=== PATIENT | female | born 2000 | race Hispanic/Latino ===

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

== ENCOUNTER 2025-06-22 09:19 | Emergency (ER) | payer SELFPAY ==
[~2025-06-22] VITALS: Ht 162.6 cm; Wt 79.4 kg
[2025-06-22 09:25] VITALS: TEMP 99
--- NOTE | 2025-06-22 09:45 | ERN ---
General Chief Complaint: Abdominal Pain Stated Complaint: ABD PAIN Time Seen by MD: 09:39 History of Present Illness Initial Comments 25 year old female presented with a chief complaint of diarrhea associated with nausea and vomiting since yesterday evening. She said her diarrhea was watery without blood mixed with episodes every 30 minutes. She complained of abdominal discomfort in her right lower quadrant. She also complained of headache she attribute to her undiagnosed migraine. The headache was bilateral and associ ated with increased discomfort with light and sound. She did not complain of chest pain, shortness of breath, burning urine. Allergies: Coded Allergies: No Known Drug Allergies (Unverified Allergy, Unknown, 06/22/25) Past Medical History Past Medical History: No Pertinent History Past Surgical History: Tonsillectomy Surgical History Other: LEFT OVARY REMOVAL, Female( History) LMP: May 23, 2025 ROS Dictation CONSTITUTIONAL: No chills, no fever, no weakness, no diaphoresis, no malaise. HEAD/FACE: No signs of trauma. EENT: No eye pain, no blurred vision, no tearing, no double vision, no ear pain, no ear discharge, no nose pain, no nasal congestion, no throat pain, no throat swelling, no mouth pain. RESPIRATORY: No cough, no orthopnea, SOB, no stridor, wheezing. CARDIOVASCULAR: No chest pain, no edema, no palpitations, no syncope. GASTROINTESTINAL/ABDOMINAL: Right lower quadrant abdominal pain. Diarrhea and vomiting present. GENITOURINARY: No abnormal discharge, no dysuria, no frequent urination, no hematuria. No complaints of pain in the genitals. MUSCULOSKELETAL: No back pain, no gout, no joint pain, no joint swelling, no muscle pain, no muscle stiffness, no neck pain. INTEGUMENTARY: No change in color, no change in hair/nails, no dryness, no lesion, no lumps, no rash. NEUROLOGICAL/PSYCH: Headache present. HEMATOLOGIC/LYMPHATIC: Not anemic, no history of blood clots, no apparent bleeding, no bruising, glands not swollen. All Systems Negative, Except as Noted. Physical Exam Physical Exam Dictation GENERAL APPEARANCE: Alert, oriented x3, no acute distress, obese. HEAD AND FACE: Non-traumatic. EYES: PERRL, pink conjunctivas, eyelid no trauma, anterior chamber clear. EARS: Pinnas intact and no signs of trauma or erythema. NOSE: No discharge, no bleeding. OROPHARYNX: Mouth normal, teeth no caries, tongue pink. Pharynx clear, no erythema. Tonsils no exudates, no abscesses noted. Mucous membrane dry. NECK: Supple, non-tender, no thyromegaly, no masses, no JVD, no bruits. BREAST: Deferred. CHEST: No tenderness, no crepitus, no paradoxical movement, no retractions. LUNGS: Clear, well-ventilated, symmetric, no rales, wheezing, no rhonchi, no stridor, good breath sounds bilaterally. HEART: Regular rate, regular rhythm, no murmur, no gallops. VASCULAR: No peripheral edema. ABDOMEN: Tenderness in the right lower quadrant without rigidity, rebound tenderness and guarding. RECTAL: Deferred. GENITAL: Deferred. NEUROLOGICAL: Normal speech, gross motor function intact, gross sensory function intact. MUSCULOSKELETAL: Neck nontender, full range of motion, back nontender, full range of motion. EXTREMITIES: Nontender, full range of motion. SKIN: Color pink, dry, no turgor, no rash, no lacerations, no abrasions, no contusions. LYMPHATICS: Deferred. Results Laboratory and Microbiology Lab and Micro Result Laboratory Tests Test 06/22/25 09:42 06/22/25 11:14 White Blood Count 8.1 K/uL (4.8-10.8) Red Blood Count 4.65 MIL/uL (4.00-5.50) Hemoglobin 14.2 g/dL (12.0-16.0) Hematocrit 40.6 % (36-48) Mean Corpuscular Volume 87.3 fL (79-99) Mean Corpuscular Hemoglobin 30.5 pg (27.0-33.0) Mean Corpuscular Hemoglobin Concent 35.0 g/dL (32.0-36.0) Red Cell Distribution Width 12.0 % (11.0-15.5) Platelet Count 187 K/uL (130-400) Mean Platelet Volume 10.2 fL (7.5-10.5) Immature Granulocyte % (Auto) 0.2 % (0-1) Neutrophils (%) (Auto) 87.4 % (40.0-77.0) H Lymphocytes (%) (Auto) 7.0 % (21.0-51.0) L Monocytes (%) (Auto) 5.3 % (3.0-13.0) Eosinophils (%) (Auto) 0.0 % (0.0-8.0) Basophils (%) (Auto) 0.1 % (0.0-5.0) Neutrophils # (Auto) 7.1 K/uL (1.8-7.7) Lymphocytes # (Auto) 0.6 K/uL (1.0-4.8) L Monocytes # (Auto) 0.4 K/uL (0.1-1.0) Eosinophils # (Auto) 0.00 K/uL (0.00-0.70) Basophils # (Auto) 0.01 K/uL (0.00-0.20) Absolute Immature Granulocyte (auto 0.02 K/uL (0-1) Nucleated Red Blood Cells 0.0 % (0.0-0.19) White Cell Morphology Comment See comments Sodium Level 136 mmol/L (136-145) Potassium Level 3.8 mmol/L (3.5-5.1) Chloride Level 103 mmol/L (101-111) Carbon Dioxide Level 26 mmol/L (21-32) Blood Urea Nitrogen 12 mg/dL (7-18) Creatinine 0.7 mg/dL (0.5-1.0) Glomerular Filtration Rate Calc 125 mL/min (>90) Random Glucose 106 mg/dL (70-105) H Total Calcium 8.4 mg/dL (8.5-10.1) L Total Bilirubin 0.7 mg/dL (0.2-1.0) Aspartate Amino Transf (AST/SGOT) 10 U/L (10-37) Alanine Aminotransferase (ALT/SGPT) 16 U/L (12-78) Alkaline Phosphatase 59 U/L (50-136) Total Creatine Kinase 34 U/L (21-232) Total Protein 7.8 g/dL (6.0-8.3) Albumin 3.6 g/dL (3.5-5.0) Lipase 46 U/L (16-77) Serum Test, Qualitative NEGATIVE (NEGATIVE) Urine Color YELLOW (YELLOW) Urine Appearance CLOUDY (CLEAR) H Urine pH 6.0 (5.0-8.0) Urine Specific [place] 1.031 (1.001-1.031) Urine Protein 30 mg/dL (NEGATIVE) H Urine Glucose (UA) NEGATIVE mg/dL (NEGATIVE) Urine Ketones 20 mg/dL (NEGATIVE) H Urine Occult Blood NEGATIVE (NEGATIVE) Urine Nitrate NEGATIVE (NEGATIVE) Urine Bilirubin NEGATIVE mg/dL (NEGATIVE) Urine Urobilinogen 0.2 mg/dL (0.2-1.0) Urine Leukocyte Esterase 25 Chavez/uL (NEGATIVE) H Urine RBC 2-5 /HPF (0-1) H Urine WBC 6-10 /HPF (0-1) H Urine Squamous Epithelial Cells MOD /HPF (0-2) Urine Bacteria RARE /HPF (None Seen) EKG/XRAY/US/CT/MRI EKG Comment Is a 2024 time 9:49 a.m. Ventricular rate 70 Sinus rhythm [place] [address] wave elevation or depression CT Scan Comment [place] [id number] [address] IMAGING REPORT Signed PATIENT: AAMIR MILLER MR#: [id number] : 2000 SEX: F AGE: 25 LOCATION: [facility] ORDER 06 STATUS: REG REPORT#: [id number] SERVICE [id number] REASON: rlq pain ORDERING PHYSICIAN: SUSAN YEE MD PROCEDURE: ABD PEL WO - CT ABDOMEN/PELVIS W/O CONTRAST EXAM: COMPUTED TOMOGRAPHY OF THE ABDOMEN AND PELVIS WITHOUT INTRAVENOUS CONTRAST Technique: Helical non-contrast computed tomography from the diaphragm to the pubic symphysis with axial images and coronal/sagittal reformations. Dose optimization techniques applied (automatic exposure control; size-based kV/mA modulation; iterative reconstruction). CTDIvol 18.6 mGy; DLP 1,101.9 mGy???cm. Contrast: No intravenous contrast administered. Clinical Information: Right lower quadrant pain. Findings: Lung bases: No pleural effusion, lobar collapse, or consolidation in the imaged bases. Liver: Normal size, contour, and attenuation; no focal hepatic lesion; no biliary ductal dilatation. Portal and hepatic veins are normal in caliber on this non-contrast study. Gallbladder and biliary tree: Gallbladder with normal wall thickness and smooth contour. Trace dependent high-attenuation layering compatible with minimal sludge. No pericholecystic fat stranding observed. Pancreas: Normal size and attenuation; main pancreatic duct not dilated; no peripancreatic inflammatory change. Spleen: Normal size and attenuation; no focal lesion. Adrenals: Normal bilaterally. Kidneys and ureters: Normal size and attenuation; no renal/ureteral calculus, mass, or hydronephrosis. Stomach and duodenum: Stomach distended and otherwise unremarkable; gastroesophageal junction, pylorus, and duodenum normal. Small bowel: Jejunal and ileal loops normal in distribution and caliber; no wall thickening; mesentery normal. Colon and appendix: Colon stool-filled without mural thickening. Appendix is visualized, measures approximately 4 mm in outer diameter, with no wall thickening, periappendiceal fat stranding, or appendicolith. Peritoneum and mesentery: No free intraperitoneal air. Small volume physiologic-appearing pelvic free fluid. Lymph nodes: No pathologic abdominopelvic lymphadenopathy. Retroperitoneum and vasculature: Aorta and inferior vena cava normal in course and caliber. Pelvic organs: Urinary bladder normal in wall thickness and contour. Uterus appears age-appropriate. Abdominal wall/soft tissues: Unremarkable. Osseous structures: No acute osseous abnormality. Impression: * No computed tomography evidence of acute appendicitis (appendix 4 mm without periappendiceal inflammatory change). * No acute abdominopelvic process identified to account for right lower quadrant pain on this non-contrast study. * Minimal gallbladder sludge without secondary inflammatory findings???correlate clinically. * Small volume physiologic pelvic free fluid. /[place] DICTATED BY: JENNY ZULUAGA MD DATE: 06/22/251510 ELECTRONICALLY SIGNED BY: JENNY ZULUAGA MD DATE: 06/22/251510 [facility] MDM: Differential diagnosis: Acute gastroenteritis, acute appendicitis, UTI and other Rationale: Tests considered and ordered secondary to shared decision making include: Previous outside records reviewed: Old ER visits. Risk of complication and/or morbidity or mortality of patient management: None Medications-Per medication reconciliation Need for hospitalization: Patient does not meet criteria for hospitalization. Need for emergency major/minor surgery: No There are no social concerns with this patient. Prescription drug management Prescriptions will include symptomatic care Patient's prior external medical records from other ER visits were reviewed by me as indicated. Prior testing and results from previous visits were reviewed. Prior tests were taken into account with medical decision making and resource utilization, independent historian/historians were used to obtain complete medical history. ED course: 25 year old female presented with a chief complaint of diarrhea associated with nausea and vomiting since yesterday evening. She said her diarrhea was watery without blood mixed with episodes every 30 minutes. She complained of abdominal discomfort in her right lower quadrant. She also complained of headache she attribute to her undiagnosed migraine. The headache was bilateral and associated with increased discomfort with light and sound. She did not complain of fever, chest pain, shortness of breath and burning urine. Vitals: Temperature 99.0, BP 129/80, pulse 1 1 4, respiratory rate 20, SpO2 99% in room air. Remarkable labs for WBC 8.1 with neutrophilia 87.4%. Patient is a 25-year-old female coming in complaining of abdominal discomfort laboratory workup mild neutrophil shift CT did not disclose acute findings. A urinary analysis mi leuko esterase positive urine. Patient will be discharged in stable condition with a diagnosis of UTI gastroenteritis and antibiotics will be provided. I did advised her appropriate follow up with PCP for long-term management. ED Course Orders Procedure Category Date Status Time Cbc With Differential LAB 06/22/25 Complete 09:33 Comprehensive LAB 06/22/25 Complete Metabolic Panel 09:33 Urinalysis Profile LAB 06/22/25 Complete 09:33 0.9%Nacl 1000ml (Ns PHA 06/22/25 Complete 1000ml) 10:00 Acetaminophen 325 Tab PHA 06/22/25 Complete (Tylenol 325mg Tab 10:00 Creatine Kinase, Total LAB 06/22/25 Complete 09:33 Lipase LAB 06/22/25 Complete 09:33 12 Lead Ekg Tracing- EKG 06/22/25 Resulted Technical 09:45 Ondansetron 4mg Inj PHA 06/22/25 Complete (Zofran 4mg Inj) 10:30 Testing, LAB 06/22/25 Complete Serum Hcg 11:11 Culture Urine SHEREE 06/22/25 In Process 11:59 Ct Abdomen/Pelvis W/O CT 06/22/25 Resulted Contrast 12:06 Current Medications Medications (Trade) Dose Ordered Sig/Carlie Route PRN Reason Start Time Stop Time Status Last Admin Dose Admin Acetaminophen (TYLenol 325MG TAB) 650 mg ONCE ONCE PO 06/22/25 10:00 06/22/25 10:01 DC 06/22/25 09:48 Ondansetron HCl (zoFRAN 4MG INJ) 4 mg ONCE ONCE IVP 06/22/25 10:30 06/22/25 10:31 DC Sodium Chloride 1,000 ml @ 0 mls/hr ONCE ONCE IV 06/22/25 10:00 06/22/25 10:01 DC 06/22/25 09:48 Vital Signs Date Time Temp Pulse Resp B/P (MAP) Pulse Ox O2 Delivery O2 Flow Rate FiO2 06/22/25 09:25 99.0 114 20 129/80 99 Room Air* 0 21 06/22/25 09:20 99.0 114 20 129/80 99 Room Air DX & DISP Disposition: Discharge Departure Impression: Primary Impression: UTI (urinary tract infection) Additional Impression: Gastroenteritis Condition: Stable Scripts Cephalexin Monohydrate (Keflex) 500 Mg Cap 1 CAP PO BID for 10 Days, #20 CAP 0 Refills Prov: SUSAN YEE MD 06/22/25 Additional Instructions: FOLLOW-UP WITH PRIMARY CARE PROVIDER IN 1 TO 2 DAYS. TAKE MEDICATIONS DIRECTED HERE IN THE EMERGENCY ROOM. OKAY TO CONTINUE HOME MEDICATIONS UNLESS OTHERWISE DISCUSSED DURING YOUR VISIT IN THE EMERGENCY ROOM TODAY. RETURN TO YOUR NEAREST EMERGENCY ROOM IF SYMPTOMS WORSEN OR IF THERE IS NO IMPROVEMENT. CALL 911 IF YOU NEED IMMEDIATE ASSISTANCE. TAKE TYLENOL [id number] NEEDED AND IF NO CONTRAINDICATIONS ARE PRESENT. INCREASE ORAL HYDRATION. A WOUND CULTURE OR URINE CULTURE WAS ORDERED HERE IN THE EMERGENCY ROOM DEPARTMENT PLEASE FOLLOW-UP WITH PRIMARY CARE PROVIDER AND ADVISE THEM TO GET REPORTS FROM OUR FACILITY. IF YOU HAD ANY RACHELL WRAP/SPLINTS THAT WERE APPLIED HERE, PLEASE DO NOT REMOVE THEM UNTIL YOU SEE YOUR PRIMARY CARE OR SPECIALTY. Referrals: Referrals: SELF,REFERRAL (PCP) OPHELIA MANCUSO MD Time of Disposition: 14:20 SOCTTY GORDILLO MD Jun 22, 2025 09:44 SUSAN YEE MD Jun 22, 2025 14:20
[2025-06-22 09:47] LABS: IMMATURE GRANULOCYTE ABSOLUTE 0.02 K/uL (0-1); NUCLEATED RED BLOOD CELLS 0.0 % (0.0-0.19); PLATELET COUNT (AUTO) 187 K/uL (130-400); RED BLOOD CELL COUNT(AUTO) 4.65 MIL/uL (4.00-5.50); RED CELL DISTRIBUTION WIDTH 12.0 % (11.0-15.5); WHITE BLOOD COUNT (AUTO) 8.1 K/uL (4.8-10.8)
[2025-06-22] MEDS: 0.9%NACL 1000ML 1,000 ML IV ONE (09:48)
[2025-06-22 09:56] LABS: CREATININE 0.7 mg/dL (0.5-1.0); GLOMERULAR FILTR. RATE CALC 125.0 mL/min (>90); GLUCOSE,RANDOM 106.0 mg/dL (70-105); SODIUM SERUM 136.0 mmol/L (136-145); UREA NITROGEN, BLOOD 12.0 mg/dL (7-18)
[2025-06-22 10:02] LABS: ASPARTATE AMINOTRANSFERASE 10.0 U/L (10-37); CREATINE KINASE, TOTAL 34.0 U/L (21-232); TOTAL PROTEIN, SERUM 7.8 g/dL (6.0-8.3)
--- NOTE | 2025-06-22 10:55 | EKG ---
[facility] Test Date: 2025-06-22 Test Time: 09:49:16 Pat Name: AAMIR MILLER Department: ED Room: Gender: F Surveillance Inspector: [id number] : 2000 Requested By: SCOTTY GORDILLO Order Number: [id number] Reading MD: Eduardo Vaca Measurements Intervals [place] Rate: 70 P: 43 HI: 152 QRS: 36 QRSD: 101 T: 21 QT: 360 QTc: 390 Interpretive Statements Sinus rhythm Compared to ECG 05/31/2018 20:16:27 No significant changes Electronically Signed On 06-22-2025 12:23:13 CDT by Eduardo Vaca Please click the below link to view image of tracing.
[2025-06-22 11:39] LABS: APPEARANCE,URINE CLOUDY (CLEAR); GLUCOSE, URINE (UA) NEGATIVE (NEGATIVE); LEUKOCYTE ESTERASE ,URINE 25 Leu/uL (NEGATIVE); NITRATE,URINE NEGATIVE (NEGATIVE); OCCULT BLOOD,URINE NEGATIVE (NEGATIVE)
[2025-06-22 11:49] LABS: ADD UA MICROSCOPIC YES
[2025-06-22 11:57] LABS: SQUAMOUS EPITHELIAL CELL,UR MOD /HPF (0-2)
--- NOTE | 2025-06-22 14:12 | HMCIMG ---
EXAM: COMPUTED TOMOGRAPHY OF THE ABDOMEN AND PELVIS WITHOUT INTRAVENOUS CONTRAST Technique: Helical non-contrast computed tomography from the diaphragm to the pubic symphysis with axial images and coronal/sagittal reformations. Dose optimization techniques applied (automatic exposure control; size-based kV/mA modulation; iterative reconstruction). CTDIvol 18.6 mGy; DLP 1,101.9 mGy???cm. Contrast: No intravenous contrast administered. Clinical Information: Right lower quadrant pain. Findings: Lung bases: No pleural effusion, lobar collapse, or consolidation in the imaged bases. Liver: Normal size, contour, and attenuation; no focal hepatic lesion; no biliary ductal dilatation. Portal and hepatic veins are normal in caliber on this non-contrast study. Gallbladder and biliary tree: Gallbladder with normal wall thickness and smooth contour. Trace dependent high-attenuation layering compatible with minimal sludge. No pericholecystic fat stranding observed. Pancreas: Normal size and attenuation; main pancreatic duct not dilated; no peripancreatic inflammatory change. Spleen: Normal size and attenuation; no focal lesion. Adrenals: Normal bilaterally. Kidneys and ureters: Normal size and attenuation; no renal/ureteral calculus, mass, or hydronephrosis. Stomach and duodenum: Stomach distended and otherwise unremarkable; gastroesophageal junction, pylorus, and duodenum normal. Small bowel: Jejunal and ileal loops normal in distribution and caliber; no wall thickening; mesentery normal. Colon and appendix: Colon stool-filled without mural thickening. Appendix is visualized, measures approximately 4 mm in outer diameter, with no wall thickening, periappendiceal fat stranding, or appendicolith. Peritoneum and mesentery: No free intraperitoneal air. Small volume physiologic-appearing pelvic free fluid. Lymph nodes: No pathologic abdominopelvic lymphadenopathy. Retroperitoneum and vasculature: Aorta and inferior vena cava normal in course and caliber. Pelvic organs: Urinary bladder normal in wall thickness and contour. Uterus appears age-appropriate. Abdominal wall/soft tissues: Unremarkable. Osseous structures: No acute osseous abnormality. Impression: * No computed tomography evidence of acute appendicitis (appendix 4 mm without periappendiceal inflammatory change). * No acute abdominopelvic process identified to account for right lower quadrant pain on this non-contrast study. * Minimal gallbladder sludge without secondary inflammatory findings???correlate clinically. * Small volume physiologic pelvic free fluid. /[place]
[2025-06-22] MEDS ORDERED: CEPH500B PO (14:20)
[2025-06-22 14:30] VITALS: BP 123/69; PULSE 84; RESP 18; O2SAT 99
== END 2025-06-22 14:43 | disposition home or self-care (01) ==
LOC: EDH 09:19
DX: N39.0 Urinary tract infection, site not specified (principal); K52.9 Noninfective gastroenteritis and colitis, unspecified; R51.9 Headache, unspecified; R11.2 Nausea with vomiting, unspecified; Z90.89 Acquired absence of other organs; Z90.721 Acquired absence of ovaries, unilateral
CPT/HCPCS: 99284; 74176; 96360; 82550; 80053; 84703; 83690; 85025; 87086; 81001; 36415; 93005; J7030; J2405